=== PATIENT | male | born 1985 | race Hispanic/Latino ===

== ENCOUNTER 2017-08-29 10:35 | Emergency (ER) | payer SELFPAY ==
[~2017-08-29] VITALS: Ht 172.7 cm; Wt 77.2 kg
[2017-08-29] MEDS ORDERED: GENTAMICIN15 ML/BTL OD (11:24)
[2017-08-29 11:40] VITALS: BP 141/92
== END 2017-08-29 11:50 | disposition home or self-care (01) | DRG 941 ==
LOC: ED 10:35
PROC: 08C8XZZ Extirpation of Matter from Right Cornea, External Approach (ICD-10-PCS; principal; 2017-08-29)
DX: F17.210 Nicotine dependence, cigarettes, uncomplicated (principal); T15.01XA Foreign body in cornea, right eye, initial encounter; X58.XXXA Exposure to other specified factors, initial encounter; Y93.89 Activity, other specified; Y92.009 Unspecified place in unspecified non-institutional (private) residence as the place of occurrence of the external cause

== ENCOUNTER 2021-12-11 18:38 | Emergency (ER) | payer SELFPAY ==
[~2021-12-11] VITALS: Ht 172.7 cm; Wt 81.6 kg
[~2021-12-11 18:38] MED LIST: GENTAMICIN15 ML/BTL OD
[2021-12-11 18:54] VITALS: BP 120/82
[2021-12-11 19:00] VITALS: BP 111/82
[2021-12-11 19:31] VITALS: BP 117/83
[2021-12-11 20:00] VITALS: BP 121/79
[2021-12-11] MEDS ORDERED: KEFLEX500 MG PO (20:28)
[2021-12-11] MEDS ORDERED: NAPROXEN500 MG PO (20:28)
[2021-12-11 20:31] VITALS: BP 131/76
== END 2021-12-11 20:45 | disposition home or self-care (01) | DRG 605 ==
LOC: ED 18:38
PROC: 0JQP3ZZ Repair Left Lower Leg Subcutaneous Tissue and Fascia, Percutaneous Approach (ICD-10-PCS; principal; 2021-12-11)
DX: S81.812A Laceration without foreign body, left lower leg, initial encounter (principal); F17.200 Nicotine dependence, unspecified, uncomplicated; W17.89XA Other fall from one level to another, initial encounter; Y93.89 Activity, other specified; Y92.007 Garden or yard of unspecified non-institutional (private) residence as the place of occurrence of the external cause